=== PATIENT | female | born 1935 | race Caucasian/White ===

== ENCOUNTER → 2021-02-21 | Outpatient (CLI) | payer MEDICARE ==
--- NOTE | 2021-02-21 12:34 | REP ---
INDICATION: PAIN. COMPARISON: None. TECHNIQUE: AP and lateral views FINDINGS: The bones are demineralized. There is a grade 3 L1 compression fracture. There is degenerative disc space narrowing at every level. There is an exaggerated thoracic kyphotic curve. There is bridging marginal osteophyte formation seen bilaterally at all levels. IMPRESSION: Age undetermined L1 fracture as described above. MRI is recommended for further evaluation. There are advanced chronic changes as described above. <Electronically signed by Scott Cotto > 02/21/21 [id number]
--- NOTE | 2021-02-21 12:36 | REP ---
INDICATION: PAIN. COMPARISON: None. TECHNIQUE: Multiple views FINDINGS: The bones are markedly demineralized. There is advanced disc space narrowing at every level. There is anterior lipping at every level. There is a grade 3 L1 compression fracture. There is marginal osteophyte formation seen bilaterally at every level. There are chronic facet joint changes seen bilaterally at every level. There is a dextroconvex curve. IMPRESSION: 1. Age undetermined L1 compression fracture. MRI is recommended. 2. Advanced appearing chronic changes as described above. There are no priors comparison. <Electronically signed by Scott Cotto > 02/21/21 [id number]
== END ==
LOC: M WUC 11:08
PROVIDERS: ATTEND Physician Assistant Medical
DX: M54.5 Low back pain (principal); R39.15 Urgency of urination

== ENCOUNTER 2021-03-27 20:34 | Emergency (ER) | payer MEDICARE ==
[~2021-03-27] VITALS: Ht 172.7 cm; Wt 81.8 kg
[2021-03-27] MEDS ORDERED: ACET650T61 PO (20:47)
[2021-03-27] MEDS ORDERED: ONDANSETRON 4MG/2ML VIAL IV ONE (21:10)
[2021-03-27] MEDS ORDERED: PANTOPRAZOLE 40MG VIAL (C9113 PER 1) IV ONE (21:10)
[2021-03-27] MEDS ORDERED: NS 500 ML IV ONE (21:10)
[2021-03-27 22:32] LABS: BASO % 0.7 % (0.0-1.0); EOS % 0.2 % (0.0-3.0); HEMATOCRIT 43.9 % (36.0-47.0); HEMOGLOBIN 14.5 g/dl (12.0-15.5); LYMPH # 0.5 10^3/uL (1.5-5.0); LYMPH % 8.8 % (24.0-44.0); MEAN CORPUSCULAR HEMOGLOBIN 29.3 pg (27.0-33.0); MEAN CORPUSCULAR VOLUME 88.7 fl (80.0-96.0); MONO # 0.2 10^3/uL (0.0-0.8); MONO % 2.8 % (2.0-8.0); NEUTROPHILS # 5.2 10^3/uL (1.5-8.5); NEUTROPHILS % 87.2 % (36.0-66.0); PLATELET COUNT, AUTOMATED 170 10^3/uL (150-450); RED BLOOD COUNT 4.95 10^6/uL (4.00-5.40)
[2021-03-27 23:05] LABS: ALBUMIN 3.7 GM/DL (3.2-5.2); ALT/SGPT 15 U/L (12-78); BILIRUBIN,DIRECT 0.1 MG/DL (0.0-0.2); BILIRUBIN,TOTAL 0.5 MG/DL (0.2-1.0); BLOOD UREA NITROGEN 18 MG/DL (7-18); CALCIUM LEVEL 9.2 MG/DL (8.8-10.2); CARBON DIOXIDE LEVEL 29 MEQ/L (21-32); CHLORIDE LEVEL 107 MEQ/L (98-107); CK-MB VALUE MASS 1.3 NG/ML (<3.6); CPK CREATINE PHOSPHOKINASE 83 U/L (26-192); CREATININE FOR GFR 0.88 MG/DL (0.55-1.30); GLOMERULAR FILTRATION RATE > 60.0 (>32); GLUCOSE, FASTING 128 MG/DL (70-100); LIPASE 146 U/L (73-393); MB/CK RELATIVE INDEX 1.57 (< OR =4); POTASSIUM SERUM 4.4 MEQ/L (3.5-5.1); SODIUM LEVEL 142 MEQ/L (136-145); TOTAL PROTEIN 7.1 GM/DL (6.4-8.2); TROPONIN I < 0.02 NG/ML (< 0.10)
[2021-03-27] MEDS ORDERED: ONDA4TAB6 PO (23:29)
[2021-03-27] MEDS ORDERED: ONDANSETRON 4 MG ORAL DISINTEGRATING TAB PO ONE (23:30)
[2021-03-27 23:34] VITALS: BP 155/71
--- NOTE | 2021-03-28 06:55 | ECGEPIP ---
[facility] - ED Test Date: 2021-03-27 Pat Name: JUAN A GILL Department: Room: - Gender: Female [employer]: ERMIASSEBASTIENMAYELIN : 1935 Requested By: KIRT GREEN Order Number: [id number] Reading MD: Kirt Donahue Measurements Intervals [place] Rate: 75 P: 21 MD: 162 QRS: -8 QRSD: 88 T: -4 QT: 388 QTc: 433 Interpretive Statements Normal sinus rhythm Minimal voltage criteria for LVH, may be normal variant Nonspecific ST-T wave abnormalities Baseline artifact Comparison tracing not on file Electronically Signed on 03-28-2021 6:54:48 EDT by Kirt Donahue
== END 2021-03-28 00:18 | disposition home or self-care (01) ==
LOC: M ED 20:34
DX: K52.9 Noninfective gastroenteritis and colitis, unspecified (principal); M54.18 Radiculopathy, sacral and sacrococcygeal region; S32.010A Wedge compression fracture of first lumbar vertebra, initial encounter for closed fracture; X58.XXXA Exposure to other specified factors, initial encounter; Y92.9 Unspecified place or not applicable; Y93.9 Activity, unspecified; Y99.9 Unspecified external cause status; M48.061 Spinal stenosis, lumbar region without neurogenic claudication; M43.16 Spondylolisthesis, lumbar region; M25.78 Osteophyte, vertebrae
CPT/HCPCS: 36415; 72148; 80048; 80076; 82550; 82553; 83690; 84484; 85025; 93005; 93041; 96361; 96374; 96375; 99284; C9113; J2405

== ENCOUNTER → 2021-03-27 | Outpatient (CLI) | payer MEDICARE ==
[~2021-03-27] MED LIST: ACET650T61 PO; ONDA4TAB6 PO
== END ==
LOC: M RAD 14:07
PROVIDERS: ATTEND Pain Medicine Interventional Pain Medicine
DX: M54.18 Radiculopathy, sacral and sacrococcygeal region (principal); S32.010A Wedge compression fracture of first lumbar vertebra, initial encounter for closed fracture; X58.XXXA Exposure to other specified factors, initial encounter; Y92.9 Unspecified place or not applicable; Y93.9 Activity, unspecified; Y99.9 Unspecified external cause status; M48.061 Spinal stenosis, lumbar region without neurogenic claudication; M43.16 Spondylolisthesis, lumbar region; M25.78 Osteophyte, vertebrae

== ENCOUNTER 2023-06-09 14:51 | Inpatient (IN) | payer MEDICARE ==
[~2023-06-09] VITALS: Ht 167.6 cm; Wt 70.1 kg
[2023-06-09] MEDS ORDERED: ELIQ5TAB PO (15:40)
[2023-06-09] MEDS ORDERED: LISI5TAB11 PO (15:40)
[2023-06-09] MEDS ORDERED: CARV3.12 PO (15:40)
[2023-06-09] MEDS ORDERED: ROSU5TAB5 PO (15:40)
[2023-06-09] MEDS ORDERED: COLA100C5 PO (15:40)
[2023-06-09] MEDS ORDERED: POTA10CA60 PO (15:40)
[2023-06-09] MEDS ORDERED: ALEN70TA82 PO (15:40)
[2023-06-09] MEDS ORDERED: TUMS500C PO (15:40)
[2023-06-09] MEDS ORDERED: PANT20TA6 PO (15:40)
[2023-06-09] MEDS ORDERED: GABA-1171 PO (15:40)
[2023-06-09] MEDS ORDERED: AMIO200T49 PO (15:40)
[2023-06-09] MEDS ORDERED: D-MAPOW4 PO (15:40)
[2023-06-09] MEDS ORDERED: NOXI1TAB PO (15:40)
[2023-06-09] MEDS ORDERED: TORS20TA2 PO (15:40)
[2023-06-09 15:53] LABS: BASO % 0.7 % (0.0-1.0); EOS # 0.3 10^3/uL (0.0-0.5); EOS % 5.9 % (0.0-3.0); HEMATOCRIT 38.9 % (36.0-47.0); HEMOGLOBIN 12.6 g/dl (12.0-15.5); LYMPH # 1.4 10^3/uL (1.5-5.0); MEAN CORPUSCULAR HEMOGLOBIN 29.1 pg (27.0-33.0); MEAN CORPUSCULAR HGB CONC 32.4 g/dl (32.0-36.5); MEAN CORPUSCULAR VOLUME 89.8 fl (80.0-96.0); MONO # 0.4 10^3/uL (0.0-0.8); MONO % 7.3 % (2.0-8.0); NEUTROPHILS # 3.5 10^3/uL (1.5-8.5); NEUTROPHILS % 61.6 % (36.0-66.0); PLATELET COUNT, AUTOMATED 160 10^3/uL (150-450); RED BLOOD COUNT 4.33 10^6/uL (4.00-5.40); WHITE BLOOD COUNT 5.6 10^3/uL (4.0-10.0)
[2023-06-09 15:58] LABS: ALKALINE PHOSPHATASE 84 U/L (46-116); ALT/SGPT 28 U/L (7.0-40); AST/SGOT 23 U/L (<34); BILIRUBIN,TOTAL 0.8 MG/DL (0.3-1.2); BLOOD UREA NITROGEN 16 MG/DL (9-23); CALCIUM LEVEL 8.3 MG/DL (8.3-10.6); CARBON DIOXIDE LEVEL 30 MMOL/L (20-31); CHLORIDE LEVEL 103 MMOL/L (98-107); CREATININE FOR GFR 1.23 MG/DL (0.55-1.30); GLUCOSE, FASTING 103 MG/DL (74-106); POTASSIUM SERUM 3.9 MMOL/L (3.5-5.1); SODIUM LEVEL 139 MMOL/L (136-145)
[2023-06-09 16:24] LABS: CK-MB VALUE MASS < 1.0 NG/ML (<3.6); LIPASE 65 U/L (12-53)
[2023-06-09 16:26] LABS: CPK CREATINE PHOSPHOKINASE 37 U/L (34-145)
[2023-06-09] MEDS ORDERED: ISOVUE-370 76% 100ML VIAL As Ordered ONE (16:30)
[2023-06-09 16:56] LABS: RSV AMPLIFICATION NEGATIVE (NEGATIVE)
[2023-06-09 17:44] LABS: CK-MB VALUE MASS < 1.0 NG/ML (<3.6)
[2023-06-09 17:46] LABS: CPK CREATINE PHOSPHOKINASE 41 U/L (34-145); MB/CK RELATIVE INDEX 2.43 (< OR =4)
[2023-06-09] MEDS ORDERED: **NOTE PATIENT COMMENT** MISC XX SCH (18:25)
[2023-06-09] MEDS ORDERED: FUROSEMIDE 40MG/4ML VIAL IV ONE (18:40)
[2023-06-09] MEDS ORDERED: VITA100093 PO (19:06)
[2023-06-09] MEDS ORDERED: ANAS1TAB2 PO (19:06)
[2023-06-09] MEDS ORDERED: HOME MED LIST COMPLETE! XX SCH (19:10)
[2023-06-09] MEDS: GABAPENTIN 100 MG CAP PO SCH (21:33)
[2023-06-09] MEDS: CARVedilol 3.125 MG TAB PO SCH (21:34)
[2023-06-09] MEDS: APIXABAN 5 MG TAB (ELIQUIS) PO SCH (21:34)
[2023-06-10] VITALS (11 sets, daily range): BP systolic 88–122; BP diastolic 49–67; TEMP 98–98.4; O2SAT 77–99
[2023-06-10 01:24] LABS: CK-MB VALUE MASS < 1.0 NG/ML (<3.6)
[2023-06-10 01:25] LABS: CPK CREATINE PHOSPHOKINASE 36 U/L (34-145); MB/CK RELATIVE INDEX 2.77 (< OR =4)
[2023-06-10 05:14] LABS: HEMATOCRIT 37.5 % (36.0-47.0); HEMOGLOBIN 12.1 g/dl (12.0-15.5); MEAN CORPUSCULAR HEMOGLOBIN 28.9 pg (27.0-33.0); MEAN CORPUSCULAR HGB CONC 32.3 g/dl (32.0-36.5); MEAN CORPUSCULAR VOLUME 89.7 fl (80.0-96.0); PLATELET COUNT, AUTOMATED 157 10^3/uL (150-450); RED BLOOD COUNT 4.18 10^6/uL (4.00-5.40); WHITE BLOOD COUNT 7.8 10^3/uL (4.0-10.0)
[2023-06-10] MEDS ORDERED: ACETAMINOPHEN TAB 650MG DOSE (2X325MG) PO PRN (05:30)
[2023-06-10 05:32] LABS: CALCIUM LEVEL 8.4 MG/DL (8.3-10.6); CREATININE FOR GFR 1.32 MG/DL (0.55-1.30); GLOMERULAR FILTRATION RATE 40.5 (>32); POTASSIUM SERUM 4.6 MMOL/L (3.5-5.1)
[2023-06-10] MEDS: APIXABAN 5 MG TAB (ELIQUIS) PO SCH ×2 (08:29→21:16)
[2023-06-10] MEDS: PANTOPRAZOLE 20 MG TAB PO SCH (08:29)
[2023-06-10] MEDS: ROSUVASTATIN 10 MG TAB (CRESTOR) PO SCH (08:30)
[2023-06-10 09:00] LABS: CK-MB VALUE MASS < 1.0 NG/ML (<3.6)
[2023-06-10] MEDS: AMIODARONE 200 MG TAB (PACERONE) PO SCH (09:00)
[2023-06-10] MEDS ORDERED: TORSEMIDE 20 MG TAB PO SCH (09:00)
[2023-06-10] MEDS: lisinopriL 5 MG TAB PO SCH (09:00)
[2023-06-10] MEDS: CARVedilol 3.125 MG TAB PO SCH ×2 (09:00→21:00)
[2023-06-10 09:07] LABS: CPK CREATINE PHOSPHOKINASE 71 U/L (34-145)
[2023-06-10 17:05] LABS: CK-MB VALUE MASS < 1.0 NG/ML (<3.6)
[2023-06-10 17:07] LABS: CPK CREATINE PHOSPHOKINASE 120 U/L (34-145); MB/CK RELATIVE INDEX 0.83 (< OR =4)
[2023-06-10] MEDS: GABAPENTIN 100 MG CAP PO SCH (21:16)
[2023-06-11] VITALS (9 sets, daily range): BP systolic 100–154; BP diastolic 54–63; TEMP 97.8–98.1; O2SAT 94–98
[2023-06-11 04:37] LABS: HEMATOCRIT 36.5 % (36.0-47.0); HEMOGLOBIN 11.9 g/dl (12.0-15.5); MEAN CORPUSCULAR HEMOGLOBIN 29.1 pg (27.0-33.0); MEAN CORPUSCULAR HGB CONC 32.6 g/dl (32.0-36.5); MEAN CORPUSCULAR VOLUME 89.2 fl (80.0-96.0); PLATELET COUNT, AUTOMATED 144 10^3/uL (150-450); RED BLOOD COUNT 4.09 10^6/uL (4.00-5.40); WHITE BLOOD COUNT 4.8 10^3/uL (4.0-10.0)
[2023-06-11 05:00] LABS: CALCIUM LEVEL 8.4 MG/DL (8.3-10.6); CREATININE FOR GFR 1.07 MG/DL (0.55-1.30); GLOMERULAR FILTRATION RATE 51.6 (>32); POTASSIUM SERUM 4.5 MMOL/L (3.5-5.1)
[2023-06-11] MEDS ORDERED: TORSEMIDE 20 MG TAB PO SCH (09:00)
[2023-06-11] MEDS: lisinopriL 5 MG TAB PO SCH (09:00)
[2023-06-11] MEDS: CARVedilol 3.125 MG TAB PO SCH (09:00)
[2023-06-11] MEDS: PANTOPRAZOLE 20 MG TAB PO SCH (09:17)
[2023-06-11] MEDS: AMIODARONE 200 MG TAB (PACERONE) PO SCH (09:19)
[2023-06-11] MEDS: ROSUVASTATIN 10 MG TAB (CRESTOR) PO SCH (09:19)
[2023-06-11] MEDS ORDERED: PILL CUTTER 1 EACH XX PRN (09:25)
[2023-06-11] MEDS: APIXABAN 5 MG TAB (ELIQUIS) PO SCH ×2 (09:32→21:31)
[2023-06-11] MEDS ORDERED: ONDANSETRON 4MG 2ML VIAL IV PRN (16:40)
[2023-06-11] MEDS: NYSTATIN 100,000 UNITS/GM TOPICAL PWD 15GM TOP SCH (21:31)
[2023-06-11] MEDS: GABAPENTIN 100 MG CAP PO SCH (21:31)
[2023-06-12 00:20] VITALS: BP 109/57; TEMP 97.7; O2SAT 94
[2023-06-12 04:31] VITALS: BP 99/55; TEMP 98; O2SAT 95
[2023-06-12 06:37] LABS: HEMOGLOBIN 12.1 g/dl (12.0-15.5); MEAN CORPUSCULAR HEMOGLOBIN 29.2 pg (27.0-33.0); MEAN CORPUSCULAR HGB CONC 32.7 g/dl (32.0-36.5); MEAN CORPUSCULAR VOLUME 89.2 fl (80.0-96.0); PLATELET COUNT, AUTOMATED 149 10^3/uL (150-450); RED BLOOD COUNT 4.15 10^6/uL (4.00-5.40); WHITE BLOOD COUNT 4.8 10^3/uL (4.0-10.0)
[2023-06-12 07:04] LABS: CALCIUM LEVEL 8.8 MG/DL (8.3-10.6); GLOMERULAR FILTRATION RATE 55.8 (>32); POTASSIUM SERUM 4.5 MMOL/L (3.5-5.1)
[2023-06-12 08:00] VITALS: BP 111/55; TEMP 97.9; O2SAT 98
[2023-06-12] MEDS: PANTOPRAZOLE 20 MG TAB PO SCH (08:05)
[2023-06-12] MEDS: APIXABAN 5 MG TAB (ELIQUIS) PO SCH (08:05)
[2023-06-12] MEDS: ROSUVASTATIN 10 MG TAB (CRESTOR) PO SCH (08:05)
[2023-06-12] MEDS: NYSTATIN 100,000 UNITS/GM TOPICAL PWD 15GM TOP SCH (08:06)
[2023-06-12] MEDS ORDERED: AMIODARONE 100MG TABLET (PACERONE) PO SCH (09:00)
[2023-06-12 12:00] VITALS: BP 112/56; TEMP 97.6; O2SAT 97
== END 2023-06-12 14:40 | disposition home or self-care (01) | DRG 312 ==
LOC: M ED 14:51 → M ED INP 18:28 → M ICU 06-10 02:08 → M PCU 06-11 13:01
PROVIDERS: ADMIT Internal Medicine; ATTEND Student in an Organized Health Care Education/Training Program
DX: R55 Syncope and collapse (principal); I13.0 Hypertensive heart and chronic kidney disease with heart failure and stage 1 through stage 4 chronic kidney disease, or unspecified chronic kidney disease; I50.9 Heart failure, unspecified; E78.5 Hyperlipidemia, unspecified; I95.9 Hypotension, unspecified; N18.32 Chronic kidney disease, stage 3b; I48.0 Paroxysmal atrial fibrillation; I08.2 Rheumatic disorders of both aortic and tricuspid valves; K21.9 Gastro-esophageal reflux disease without esophagitis; Z86.711 Personal history of pulmonary embolism; M81.0 Age-related osteoporosis without current pathological fracture; Z79.899 Other long term (current) drug therapy; Z66 Do not resuscitate; C50.119 Malignant neoplasm of central portion of unspecified female breast

== ENCOUNTER 2023-08-07 17:58 | Inpatient (IN) | payer MEDICARE ==
[~2023-08-07] VITALS: Ht 167.6 cm; Wt 73.0 kg
[~2023-08-07 17:58] MED LIST changes: +ALEN70TA82 PO; +AMIO200T49 PO; +ANAS1TAB2 PO; +CARV3.12 PO; +COLA100C5 PO; +D-MAPOW4 PO; +ELIQ5TAB PO; +GABA-1171 PO; +LISI5TAB11 PO; +NOXI1TAB PO; +PANT20TA6 PO; +POTA10CA60 PO; +ROSU5TAB5 PO; +TORS20TA2 PO; +TUMS500C PO; +VITA100093 PO
[2023-08-07] MEDS ORDERED: ASPI81CH33 PO (18:12)
[2023-08-07] MEDS ORDERED: CARV3.12 PO (18:12)
[2023-08-07] MEDS ORDERED: ISOVUE-370 76% 100ML VIAL As Ordered ONE (18:40)
[2023-08-07 18:41] LABS: BASO % 0.6 % (0.0-1.0); EOS # 0.5 10^3/uL (0.0-0.5); EOS % 9.5 % (0.0-3.0); HEMATOCRIT 39.1 % (36.0-47.0); LYMPH # 1.3 10^3/uL (1.5-5.0); LYMPH % 26.3 % (24.0-44.0); MEAN CORPUSCULAR HEMOGLOBIN 30.5 pg (27.0-33.0); MEAN CORPUSCULAR HGB CONC 33.2 g/dl (32.0-36.5); MEAN CORPUSCULAR VOLUME 91.8 fl (80.0-96.0); MONO # 0.4 10^3/uL (0.0-0.8); MONO % 7.5 % (2.0-8.0); NEUTROPHILS # 2.7 10^3/uL (1.5-8.5); NEUTROPHILS % 55.9 % (36.0-66.0); PLATELET COUNT, AUTOMATED 159 10^3/uL (150-450); RED BLOOD COUNT 4.26 10^6/uL (4.00-5.40); WHITE BLOOD COUNT 4.8 10^3/uL (4.0-10.0)
[2023-08-07 18:49] LABS: INR 1.47; PROTHROMBIN TIME 17.4 SECONDS (12.5-14.5)
[2023-08-07 18:50] LABS: PARTIAL THROMBOPLASTIN TIME 35.5 SECONDS (24.8-34.2)
[2023-08-07 19:51] LABS: RSV AMPLIFICATION NEGATIVE (NEGATIVE)
[2023-08-07] MEDS ORDERED: SENN-186 PO (22:30)
[2023-08-07] MEDS ORDERED: D-MA500C2 PO (22:40)
[2023-08-07] MEDS ORDERED: HOME MED LIST COMPLETE! XX SCH (22:40)
[2023-08-07] MEDS ORDERED: ACETAMINOPHEN TAB 650MG DOSE (2X325MG) PO PRN (23:55)
[2023-08-08] MEDS ORDERED: PILL CUTTER 1 EACH XX PRN (01:05)
[2023-08-08 01:10] VITALS: BP 161/70; TEMP 97.3; O2SAT 100
[2023-08-08 03:34] VITALS: BP 118/71; TEMP 97.2; O2SAT 98
[2023-08-08 06:15] LABS: HEMATOCRIT 33.8 % (36.0-47.0); HEMOGLOBIN 11.4 g/dl (12.0-15.5); MEAN CORPUSCULAR HEMOGLOBIN 30.6 pg (27.0-33.0); MEAN CORPUSCULAR HGB CONC 33.7 g/dl (32.0-36.5); MEAN CORPUSCULAR VOLUME 90.6 fl (80.0-96.0); PLATELET COUNT, AUTOMATED 140 10^3/uL (150-450); RED BLOOD COUNT 3.73 10^6/uL (4.00-5.40); WHITE BLOOD COUNT 3.4 10^3/uL (4.0-10.0)
[2023-08-08 06:46] LABS: CALCIUM LEVEL 8.7 MG/DL (8.3-10.6); CREATININE FOR GFR 1.14 MG/DL (0.55-1.30); MAGNESIUM LEVEL 2.2 MG/DL (1.8-2.4); POTASSIUM SERUM 3.8 MMOL/L (3.5-5.1)
[2023-08-08 07:25] VITALS: BP 136/65; TEMP 97.5; O2SAT 97
[2023-08-08 08:23] LABS: FREE T4 1.64 NG/DL (0.89-1.76); THYROID STIMULATING HORMONE 0.763 uIU/ML (0.55-4.78)
[2023-08-08 08:24] LABS: FOLATE 15.13 NG/ML (>5.4)
[2023-08-08] MEDS ORDERED: APIXABAN 5 MG TAB (ELIQUIS) PO SCH (09:00)
[2023-08-08] MEDS ORDERED: AMIODARONE 200 MG TAB (PACERONE) PO SCH (09:00)
[2023-08-08] MEDS ORDERED: SENNA 8.6 MG TAB (SENOKOT) PO SCH (09:00)
[2023-08-08] MEDS ORDERED: ASPIRIN 81MG CHEW TABLET PO SCH (09:00)
[2023-08-08] MEDS ORDERED: PROHANCE 279.3MG/ML 15ML VIAL As Ordered ONE (09:50)
[2023-08-08] MEDS ORDERED: ROSUVASTATIN 10 MG TAB (CRESTOR) PO SCH (12:00)
[2023-08-08] MEDS ORDERED: VITAMIN D 1,000 INTERNATIONAL UNITS TABLET PO SCH (12:00)
[2023-08-08] MEDS ORDERED: PANTOPRAZOLE 20 MG TAB PO SCH (12:00)
[2023-08-08] MEDS ORDERED: CALCIUM CARBONATE 500 MG CHEW U/D PO SCH (21:00)
[2023-08-08] MEDS ORDERED: DOCUSATE SODIUM 100MG CAPSULE PO SCH (21:00)
== END 2023-08-08 13:45 | disposition home or self-care (01) | DRG 947 ==
LOC: M ED 17:58 → M ED INP 22:53 → M PCU 08-08 01:08
PROVIDERS: ADMIT Family Medicine; ATTEND Family Medicine
DX: R41.3 Other amnesia (principal); G93.41 Metabolic encephalopathy; I48.91 Unspecified atrial fibrillation; C50.919 Malignant neoplasm of unspecified site of unspecified female breast; K21.9 Gastro-esophageal reflux disease without esophagitis; I10 Essential (primary) hypertension; M81.0 Age-related osteoporosis without current pathological fracture; G89.29 Other chronic pain; Z91.018 Allergy to other foods; Z79.899 Other long term (current) drug therapy; Z79.82 Long term (current) use of aspirin; Z79.01 Long term (current) use of anticoagulants; I36.0 Nonrheumatic tricuspid (valve) stenosis; Z98.41 Cataract extraction status, right eye; Z98.42 Cataract extraction status, left eye; Z66 Do not resuscitate

== ENCOUNTER → 2023-11-13 | Outpatient (CLI) | payer MEDICARE ==
[~2023-11-13] MED LIST changes: +ASPI81CH33 PO; +D-MA500C2 PO; -POTA10CA60 PO; +POTA10CA70 PO; +ROSU5TAB40 PO; -ROSU5TAB5 PO; +SENN-186 PO
== END ==
LOC: M PLAIMG 10:38
PROVIDERS: ATTEND Internal Medicine
DX: R91.1 Solitary pulmonary nodule (principal)

== ENCOUNTER 2023-11-16 20:32 | Emergency (ER) | payer MEDICARE ==
[~2023-11-16] VITALS: Ht 154.9 cm; Wt 72.5 kg
[2023-11-16 20:33] VITALS: TEMP 98.3
[2023-11-17] MEDS: BENZONATATE 100MG CAPSULE PO ONE (00:23)
[2023-11-17] MEDS ORDERED: BENZ200C70 PO (02:13)
[2023-11-17 02:15] VITALS: BP 163/74; O2SAT 98
== END 2023-11-17 02:45 | disposition home or self-care (01) ==
LOC: M ED 20:32
DX: J06.9 Acute upper respiratory infection, unspecified (principal); J90 Pleural effusion, not elsewhere classified; E87.70 Fluid overload, unspecified; E78.5 Hyperlipidemia, unspecified; I10 Essential (primary) hypertension; K21.9 Gastro-esophageal reflux disease without esophagitis; Z86.79 Personal history of other diseases of the circulatory system; Z86.711 Personal history of pulmonary embolism; Z91.02 Food additives allergy status; Z85.3 Personal history of malignant neoplasm of breast; Z79.899 Other long term (current) drug therapy; Z79.01 Long term (current) use of anticoagulants

== ENCOUNTER → 2023-12-04 | Outpatient (CLI) | payer MEDICARE ==
[~2023-12-04] MED LIST changes: +BENZ200C70 PO
== END ==
LOC: M WUC 11:16
PROVIDERS: ATTEND Internal Medicine
DX: R06.00 Dyspnea, unspecified (principal); R09.02 Hypoxemia

== ENCOUNTER → 2024-01-02 | Outpatient (REF) | payer MEDICARE ==
[~2024-01-02] MED LIST changes: +ONDA-282 PO; -ONDA4TAB6 PO
[2024-01-02 14:32] LABS: BASO % 0.8 % (0.0-1.0); EOS # 0.4 10^3/uL (0.0-0.5); EOS % 6.6 % (0.0-3.0); HEMATOCRIT 39.5 % (36.0-47.0); HEMOGLOBIN 12.6 g/dl (12.0-15.5); LYMPH % 18.8 % (24.0-44.0); MEAN CORPUSCULAR HEMOGLOBIN 29.6 pg (27.0-33.0); MEAN CORPUSCULAR HGB CONC 31.9 g/dl (32.0-36.5); MEAN CORPUSCULAR VOLUME 92.7 fl (80.0-96.0); MONO # 0.4 10^3/uL (0.0-0.8); MONO % 8.3 % (2.0-8.0); NEUTROPHILS # 3.5 10^3/uL (1.5-8.5); NEUTROPHILS % 65.3 % (36.0-66.0); PLATELET COUNT, AUTOMATED 142 10^3/uL (150-450); RED BLOOD COUNT 4.26 10^6/uL (4.00-5.40); WHITE BLOOD COUNT 5.3 10^3/uL (4.0-10.0)
[2024-01-02 14:36] LABS: ALBUMIN 3.6 G/DL (3.2-5.2); BILIRUBIN,TOTAL 0.7 MG/DL (0.3-1.2); CALCIUM LEVEL 9.6 MG/DL (8.3-10.6); CHOLESTEROL RISK RATIO 2.74 (<5); CREATININE FOR GFR 1.2 MG/DL (0.55-1.30); GLOMERULAR FILTRATION RATE 45.1 (>32); HDL CHOLESTEROL 56.4 MG/DL (>40); LDL CHOLESTEROL 83.4 MG/DL (<100); MAGNESIUM LEVEL 1.8 MG/DL (1.8-2.4); NON-HDL-C 98.6 MG/DL; THYROXINE (T4) 12.2 UG/DL (4.5-10.9); TOTAL PROTEIN 6.9 G/DL (5.7-8.2)
[2024-01-02 14:37] LABS: THYROID STIMULATING HORMONE 0.084 uIU/ML (0.55-4.78)
== END ==
LOC: M LABDRWAD 12:41
PROVIDERS: ATTEND Internal Medicine
DX: I12.9 Hypertensive chronic kidney disease with stage 1 through stage 4 chronic kidney disease, or unspecified chronic kidney disease (principal); M81.0 Age-related osteoporosis without current pathological fracture; R53.83 Other fatigue; I10 Essential (primary) hypertension; N18.30 Chronic kidney disease, stage 3 unspecified; E78.00 Pure hypercholesterolemia, unspecified; I48.0 Paroxysmal atrial fibrillation

== ENCOUNTER → 2024-03-03 | Outpatient (CLI) | payer MEDICARE | LOC: M PLAIMG 08:36 | PROVIDERS: ATTEND Internal Medicine | DX: R91.1 Solitary pulmonary nodule (principal) ==

== ENCOUNTER → 2024-08-07 | Outpatient (REF) | payer MEDICARE ==
[~2024-08-07] MED LIST changes: -ROSU5TAB40 PO; +ROSU5TAB49 PO
[2024-08-07 14:43] LABS: CALCIUM LEVEL 9.2 MG/DL (8.3-10.6); CREATININE FOR GFR 1.39 MG/DL (0.55-1.30); GLOMERULAR FILTRATION RATE 38.1 (>32); POTASSIUM SERUM 4.2 MMOL/L (3.5-5.1)
== END ==
LOC: M LABDRWAD 13:32
PROVIDERS: ATTEND Internal Medicine
DX: E78.00 Pure hypercholesterolemia, unspecified (principal)

== ENCOUNTER → 2024-10-20 | Outpatient (REF) | payer MEDICARE ==
[2024-10-20 13:57] LABS: THYROID STIMULATING HORMONE 0.347 uIU/ML (0.55-4.78)
[2024-10-20 14:00] LABS: BASO % 0.8 % (0.0-1.0); EOS # 0.2 10^3/uL (0.0-0.5); EOS % 6.5 % (0.0-3.0); HEMATOCRIT 39.6 % (36.0-47.0); HEMOGLOBIN 12.6 g/dl (12.0-15.5); LYMPH # 0.9 10^3/uL (1.5-5.0); LYMPH % 25.1 % (24.0-44.0); MEAN CORPUSCULAR HEMOGLOBIN 29.1 pg (27.0-33.0); MEAN CORPUSCULAR HGB CONC 31.8 g/dl (32.0-36.5); MEAN CORPUSCULAR VOLUME 91.5 fl (80.0-96.0); MONO # 0.3 10^3/uL (0.0-0.8); MONO % 8.2 % (2.0-8.0); NEUTROPHILS # 2.1 10^3/uL (1.5-8.5); NEUTROPHILS % 59.1 % (36.0-66.0); PLATELET COUNT, AUTOMATED 143 10^3/uL (150-450); RED BLOOD COUNT 4.33 10^6/uL (4.00-5.40); WHITE BLOOD COUNT 3.6 10^3/uL (4.0-10.0)
[2024-10-20 14:04] LABS: ALBUMIN 3.5 G/DL (3.2-5.2); BILIRUBIN,TOTAL 0.5 MG/DL (0.3-1.2); CALCIUM LEVEL 9.2 MG/DL (8.3-10.6); CHOLESTEROL RISK RATIO 2.86 (<5); CREATININE FOR GFR 1.24 MG/DL (0.55-1.30); GLOMERULAR FILTRATION RATE 41.9 (>32); HDL CHOLESTEROL 47.1 MG/DL (>40); LDL CHOLESTEROL 68.5 MG/DL (<100); NON-HDL-C 87.9 MG/DL; POTASSIUM SERUM 3.1 MMOL/L (3.5-5.1); TOTAL PROTEIN 6.8 G/DL (5.7-8.2)
== END ==
LOC: M LAB REF 13:20 → M LABDRWAD 13:20
PROVIDERS: ATTEND Internal Medicine
DX: N18.30 Chronic kidney disease, stage 3 unspecified (principal); E78.00 Pure hypercholesterolemia, unspecified; I48.0 Paroxysmal atrial fibrillation

== ENCOUNTER → 2024-10-22 | Outpatient (REF) | payer MEDICARE ==
[2024-10-22 13:56] LABS: APPEARANCE, URINE HAZY (CLEAR); BACTERIA, URINE AUTO NEGATIVE (NEGATIVE); BILIRUBIN, URINE AUTO NEGATIVE (NEGATIVE); BLOOD, URINE BLOOD 1+ (NEGATIVE); COLOR, URINE YELLOW (YELLOW); GLUCOSE, URINE (UA) AUTO 3+ mg/dL (NEGATIVE); KETONE, URINE AUTO NEGATIVE (NEGATIVE); LEUKOCYTE ESTERASE, URINE AUTO 1+ (NEGATIVE); MUCUS, URINE SMALL (NEGATIVE); NITRITE, URINE AUTO NEGATIVE (NEGATIVE); PROTEIN, URINE AUTO NEGATIVE (NEGATIVE); RBC, URINE AUTO 2 /HPF (0-3); SPECIFIC GRAVITY URINE AUTO 1.009 (1.002-1.035); SQUAMOUS EPITHELIAL CELL UR AU 6 /HPF (0-6); UROBILINOGEN, URINE AUTO 0.2 mg/dL (0.0-2.0); WBC, URINE AUTO 9 /HPF (0-3)
== END ==
LOC: M LAB REF 12:49
PROVIDERS: ATTEND Internal Medicine
DX: E78.00 Pure hypercholesterolemia, unspecified (principal); I48.0 Paroxysmal atrial fibrillation; N18.30 Chronic kidney disease, stage 3 unspecified

== ENCOUNTER → 2024-11-17 | Outpatient (REF) | payer MEDICARE ==
[2024-11-17 14:58] LABS: ALBUMIN 3.6 G/DL (3.2-5.2); BILIRUBIN,TOTAL 0.5 MG/DL (0.3-1.2); CALCIUM LEVEL 9.5 MG/DL (8.3-10.6); CREATININE FOR GFR 1.23 MG/DL (0.55-1.30); MAGNESIUM LEVEL 2.1 MG/DL (1.8-2.4); POTASSIUM SERUM 4.3 MMOL/L (3.5-5.1); TOTAL PROTEIN 6.8 G/DL (5.7-8.2)
== END ==
LOC: M LABDRWAD 13:00
PROVIDERS: ATTEND Internal Medicine Cardiovascular Disease
DX: I50.32 Chronic diastolic (congestive) heart failure (principal); R06.02 Shortness of breath; I48.91 Unspecified atrial fibrillation

== ENCOUNTER → 2025-02-16 | Outpatient (REF) | payer MEDICARE ==
[~2025-02-16] MED LIST changes: -AMIO200T49 PO; +AMIO200T54 PO
[2025-02-16 19:06] LABS: BASO # 0.1 10^3/uL (0.0-0.2); BASO % 0.9 % (0.0-1.0); EOS # 0.2 10^3/uL (0.0-0.5); EOS % 2.7 % (0.0-3.0); LYMPH # 1.4 10^3/uL (1.5-5.0); LYMPH % 25.3 % (24.0-44.0); MONO # 0.5 10^3/uL (0.0-0.8); MONO % 8.3 % (2.0-8.0); NEUTROPHILS # 3.6 10^3/uL (1.5-8.5); NEUTROPHILS % 62.6 % (36.0-66.0); PLATELET COUNT, AUTOMATED 154 10^3/uL (150-450)
[2025-02-16 19:39] LABS: ALT/SGPT 17.0 U/L (7.0-40); AST/SGOT 21.0 U/L (<34); CALCIUM LEVEL 9.6 MG/DL (8.3-10.6); CARBON DIOXIDE LEVEL 31.0 MMOL/L (20-31); CHLORIDE LEVEL 105.0 MMOL/L (98-107); CREATININE FOR GFR 1.3 MG/DL (0.55-1.30); GLOMERULAR FILTRATION RATE 39.3 (>32); MAGNESIUM LEVEL 2.0 MG/DL (1.8-2.4); POTASSIUM SERUM 4.1 MMOL/L (3.5-5.1); SODIUM LEVEL 147.0 MMOL/L (136-145)
== END ==
LOC: M LABDRWAD 18:10
PROVIDERS: ATTEND Internal Medicine
DX: M18.30 Unilateral post-traumatic osteoarthritis of first carpometacarpal joint, unspecified hand (principal); M81.0 Age-related osteoporosis without current pathological fracture; E78.00 Pure hypercholesterolemia, unspecified